=== PATIENT | female | born 1965 | race Two or more races ===

== ENCOUNTER → 2024-06-01 | Outpatient (BNVA) | payer MEDICAID, SELFPAY | END | disposition home or self-care (01) | PROVIDERS: PCP Nurse Practitioner Family; Referring Provider Nurse Practitioner Family; Visit Provider Nurse Practitioner Family | DX: Z00.01 Encounter for general adult medical examination with abnormal findings (principal); I10 Essential (primary) hypertension; E78.5 Hyperlipidemia, unspecified; E03.9 Hypothyroidism, unspecified; R73.03 Prediabetes; E66.9 Obesity, unspecified; Z68.30 Body mass index [BMI] 30.0-30.9, adult; Z71.2 Person consulting for explanation of examination or test findings; E55.9 Vitamin D deficiency, unspecified | CPT/HCPCS: 93005; 99214 ==

== ENCOUNTER → 2024-07-02 | Outpatient (BNVA) | payer MEDICAID, SELFPAY | END | disposition home or self-care (01) | PROVIDERS: PCP Nurse Practitioner Family; Referring Provider Nurse Practitioner Family; Visit Provider Nurse Practitioner Family | DX: I10 Essential (primary) hypertension (principal) | CPT/HCPCS: 99213 ==

== ENCOUNTER → 2024-11-30 | Outpatient (CLI) | payer MEDICAID, SELFPAY ==
--- NOTE | 2024-11-30 10:00 | XR_ITS ---
Examination: Diagnostic digital mammography, bilateral Computer aided detection 3-D breast Tomosynthesis, bilateral Date and time of exam: November 30, 2024 0939 hours Compared to mammograms dating to October 22, 2018 Technique: Nonmagnified MLO, CC views of the breasts to been obtained, reconstructed from 3-D Tomosynthesis images. R2 computer aided detection program utilized for evaluation of suspicious masses and/or abnormal calcifications. 3-D Tomosynthesis images obtained. INDICATIONS: Left breast pain 3 months Findings: Scattered areas of fibroglandular density Skin lesion right breast Benign calcifications. No interval suspicious masses Impression: BI-RADS Category 2: Benign findings Recommend yearly follow-up mammography Recommend bilateral breast sonography follow-up
== END | disposition home or self-care (01) ==
DX: R92.323 Mammographic fibroglandular density, bilateral breasts (principal); R92.1 Mammographic calcification found on diagnostic imaging of breast
CPT/HCPCS: 77062; 77066; G0279

== ENCOUNTER → 2024-12-29 | Outpatient (CLI) | payer MEDICAID, SELFPAY ==
--- NOTE | 2024-12-29 13:00 | XR_ITS ---
Examination: Breast ultrasound, unilateral, right Date and time of exam: December 29, 2024 1323 hours Comparison April 02, 2022 INDICATIONS: Right breast pain beginning 4 months ago, no family history breast cancer Technique: Real-time devlin scale ultrasonographic imaging performed right breast including all 4 quadrants as well as nipple retroareolar and axillary region. Findings: No cystic or solid mass IMPRESSION: BI-RADS Category 1: Negative study
== END | disposition home or self-care (01) ==
LOC: CDIM 13:07
DX: N64.4 Mastodynia (principal)
CPT/HCPCS: 76641